=== PATIENT | female | born 1970 | race Caucasian/White ===

== ENCOUNTER 2016-08-31 14:37 | Emergency (ER) | payer OTHER ==
[~2016-08-31] VITALS: Ht 154.9 cm; Wt 139.5 kg
[~2016-08-31 14:37] MED LIST: ALBU8.5H3 INH; BECL8.7A INH; CETI10TA34 PO; CITROMA PO; GLIP2.5T14 PO; GUAI120S26 PO; PRED50TA PO; RTPRO NEB; SERT20OR2 PO
[2016-08-31 15:00] VITALS: Ht 154.9 cm; Wt 139.5 kg
[2016-08-31] MEDS ORDERED: KETOROLAC 30 MG INJ IV STA (16:24)
[2016-08-31] MEDS ORDERED: BREX3TAB PO (16:40)
[2016-08-31] MEDS ORDERED: TOPI-44 PO (16:42)
[2016-08-31] MEDS ORDERED: SERT50TA PO (16:42)
[2016-08-31] MEDS ORDERED: ALBU18HF INHALATION (16:43)
[2016-08-31] MEDS ORDERED: GLU5XL PO (16:43)
[2016-08-31] MEDS ORDERED: KETOROLAC 30 MG INJ ONE (16:47)
[2016-08-31 17:26] LABS: BASOPHILS % 0.3 % (0.0-2.0); EOSINOPHILS # 0.1 10^3/ul (0.0-0.5); EOSINOPHILS % 0.7 % (0.0-7.0); HEMATOCRIT 38.9 % (37.0-47.0); HEMOGLOBIN 12.7 g/dl (12.0-16.0); LYMPHOCYTES # 4.1 10^3/ul (0.8-2.9); MEAN CORPUSCULAR HEMOGLOBIN 27.1 pg (29.0-33.0); MEAN CORPUSCULAR HGB CONC 32.6 g/dl (32.0-37.0); MEAN CORPUSCULAR VOLUME 83.1 fl (82.0-101.0); MEAN PLATELET VOLUME 7.5 fl (7.4-10.4); MONOCYTE # 1.5 10^3/ul (0.3-0.9); MONOCYTES % 8.8 % (0.0-11.0); NEUTROPHIL # 11.2 10^3/ul (1.6-7.5); NEUTROPHILS % 66.2 % (39.0-77.0); PLATELET COUNT 334 10^3/UL (140-440); RED BLOOD COUNT 4.68 10^6/ul (4.20-5.40); RED CELL DISTRIBUTION WIDTH 15.6 % (11.5-14.5); UNCORRECTED WBC 16.9 10^3/ul (4.8-10.8); WHITE BLOOD COUNT 16.9 10^3/ul (4.8-10.8)
[2016-08-31 17:35] LABS: INR 0.91; PROTIME 12.2 Sec (12.2-14.2)
[2016-08-31 17:37] LABS: CONDITION 1; LH ANALYZER COMMENTS 1
[2016-08-31 17:38] LABS: D-DIMER 389.66 ng/ml (<460)
[2016-08-31 17:40] LABS: CHLORIDE 106 mmol/L (97-110); POTASSIUM 4.1 mmol/L (3.5-5.1); SODIUM 140 mmol/L (135-144)
[2016-08-31 17:42] LABS: ALBUMIN/GLOBULIN RATIO 1.14; ANION GAP 14 (8-16); ASPARTATE AMINO TRANSFERASE 20 IU/L (15-46); BILIRUBIN,INDIRECT 0.1 mg/dl (0-1.1); BILIRUBIN,TOTAL 0.1 mg/dl (0.2-1.3); BLOOD UREA NITROGEN 12 mg/dl (7-20); CARBON DIOXIDE 24 mmol/L (21-31); CREATININE 0.61 mg/dl (0.44-1.00); TOTAL PROTEIN 7.5 g/dl (6.1-8.1)
[2016-08-31 17:43] LABS: ALANINE AMINOTRANSFERASE 33 IU/L (13-69); ALKALINE PHOSPHATASE 80 IU/L (42-121); CALCIUM 9.4 mg/dl (8.4-10.2); GLUCOSE 120 mg/dl (70-220)
--- NOTE | 2016-08-31 17:58 | ERD ---
ER Documentation Chief Complaint Date/Time DATE: 08/31/16 TIME: 17:53 Chief Complaint CHEST PAIN STARTING LAST NIGHT HPI Patient presents with sharp chest pain that has been present since yesterday. It radiates through to her back. She states it has been constant since yesterday. She has been coughing. Occasional mucus which is clear. The chest pain has been gradual in onset. She denies any fever, chest congestion, sore throat, otalgia, rhinorrhea, chest trauma, nausea, vomiting, diarrhea, lower extremity edema, calf pain, traveling long distances, or pain like this prior. She states it does hurt when she presses on her chest wall. She did not try anything [id number]-dct-[id number] for this pain. She denies any abnormal rashes, bleeding, or bruises. She wonders if her bipolar medication is causing the chest pain. ROS All systems reviewed and are negative except as per history of present illness. Medications Home Meds Reported Medications Albuterol Sulfate* (Ventolin HFA*) 18 Gm Hfa.aer.ad, 2 PUFF INHALATION Q6H, #1 INHALER 08/31/16 Glipizide XL* (Glipizide XL*) 5 Mg Tabsr, 5 MG PO AC BREAKFAST, TAB 08/31/16 Sertraline Hcl* (Zoloft*) 50 Mg Tablet, 50 MG PO DAILY, #30 TAB 08/31/16 Topiramate* (Topiramate*) 25 Mg Tablet, 25 MG PO BID, TAB 08/31/16 Brexpiprazole (Rexulti) 3 Mg Tablet, 3 MG PO QHS, TAB 08/31/16 Discontinued Reported Medications Glipizide XL* (Glipizide XL*) Unknown Strength Tab.er.24, PO DAILY, TAB 01/01/16 Sertraline Hcl* (Sertraline Hcl*) Unknown Strength Oral.conc, PO DAILY, ML 01/01/16 Albuterol Sulfate* (Proair HFA*) Unknown Strength Hfa.aer.ad, INH Q4H Y for WHEEZING AND SOB, #1 INHALER 01/01/16 Discontinued Scripts Magnesium Citrate* (Citroma*) 300 Ml Soln, 300 ML PO ONCE, #1 BOTTLE Prov:LIANA PUGH. [employer] LEARNING [employer]ER 07/17/16 Cetirizine Hcl* (Cetirizine Hcl*) 10 Mg Tab.chew, 10 MG PO DAILY, #30 TAB Prov:NESSA GREENBERG NP 01/01/16 Prednisone* (Prednisone*) 50 Mg Tablet, 50 MG PO DAILY for 5 Days, TAB Prov:NESSA GREENBERG NP 01/01/16 Hpfapdjpahj-K-Utuqvjzzgy Hb* (Guaifenesin* DM Syrup) 120 Ml Syrup, 10 ML PO Q4H Y for COUGH, #120 ML Prov:NESSA GREENBERG NP 01/01/16 Beclomethasone Dip* (Qvar 40*) 7.3 Gm Inha, 2 PUFF INH BID, #1 INHALER Prov:NESSA GREENBERG NP 01/01/16 Albuterol Sulfate* (Proventil* Neb) 0.083% Neb, 2.5 MG NEB Q4 Y for SHORTNESS OF BREATH, #30 EA Prov:NESSA GREENBERG NP 01/01/16 Allergies Allergies: Coded Allergies: amitriptyline (Unverified Allergy, Unknown, 08/31/16) morphine (Unverified Allergy, Unknown, 08/31/16) PMhx/Soc History of Surgery: No Anesthesia Reaction: No Hx Neurological Disorder: No Hx Respiratory Disorders: No Hx Cardiac Disorders: No Hx Psychiatric Problems: Yes (bipolar disorder) Hx Miscellaneous Medical Probl: Yes (asthma, DM) Hx Alcohol Use: No Hx Substance Use: No Hx Tobacco Use: No Smoking Status: Never smoker FmHx Family History: diabetes Physical Exam Vitals Vital Signs Date Time Temp Pulse Resp B/P Pulse Ox O2 Delivery O2 Flow Rate FiO2 08/31/16 16:30 98.7 85 18 130/65 100 Room Air 08/31/16 16:30 Nasal Cannula 2 08/31/16 15:00 98.9 94 22 113/60 95 Physical Exam Const: Well-developed obese female lying on the bed in no acute distress Head: Atraumatic Eyes: Normal Conjunctiva ENT: Normal External Ears, Nose and Mouth. Neck: Full range of motion..~ No meningismus. Resp: Clear to auscultation bilaterally Cardio: Regular rate and rhythm, no murmurs, tenderness to palpation of left anterior chest wall which exactly reproduces her chest pain Abd: Soft, non tender, non distended. Normal bowel sounds Skin: No petechiae or rashes Back: No midline or flank tenderness Ext: No cyanosis, or edema, no tenderness to palpation of the calf, negative Homans sign. Neur: Awake and alert Psych: Normal Mood and Affect Result Diagram: 08/31/16 1700 08/31/16 1700 Results 24 hrs Laboratory Tests Test 08/31/16 17:00 Activated Partial Thromboplast Time 31.0Sec Alanine Aminotransferase (ALT/SGPT) 33IU/L Albumin 4.0g/dl Albumin/Globulin Ratio 1.14 Alkaline Phosphatase 80IU/L Anion Gap 14 Aspartate Amino Transf (AST/SGOT) 20IU/L Basophils # 0.010^3/ul Basophils % 0.3% Blood Morphology Comment Blood Urea Nitrogen 12mg/dl Calcium Level 9.4mg/dl Carbon Dioxide Level 24mmol/L Chloride Level 106mmol/L Creatinine 0.61mg/dl D-Dimer 389.66ng/ml D-Dimer Comment Direct Bilirubin 0.00mg/dl Eosinophils # 0.110^3/ul Eosinophils % 0.7% Globulin 3.50g/dl Glucose Level 120mg/dl Hematocrit 38.9% Hemoglobin 12.7g/dl INR International Normalized Ratio 0.91 Indirect Bilirubin 0.1mg/dl Lymphocytes # 4.110^3/ul Lymphocytes % 24.0% Mean Corpuscular Hemoglobin 27.1pg Mean Corpuscular Hemoglobin Concent 32.6g/dl Mean Corpuscular Volume 83.1fl Mean Platelet Volume 7.5fl Monocytes # 1.510^3/ul Monocytes % 8.8% Neutrophils # 11.210^3/ul Neutrophils % 66.2% Nucleated Red Blood Cells # 0.010^3/ul Nucleated Red Blood Cells % 0.0/100WBC Platelet Count 57528^3/UL Potassium Level 4.1mmol/L Prothrombin Time 12.2Sec Prothrombin Time Ratio 1.0 Red Blood Count 4.6810^6/ul Red Cell Distribution Width 15.6% Sodium Level 140mmol/L Total Bilirubin 0.1mg/dl Total Protein 7.5g/dl Troponin I Pending White Blood Count 16.910^3/ul Current Medications Medications (Trade) Dose Ordered Sig/Balta Route PRN Reason Start Time Stop Time Status Last Admin Dose Admin Ketorolac Tromethamine (Toradol) 30 mg ONCE STAT IV 08/31/16 16:24 08/31/16 16:25 DC 08/31/16 16:48 Procedures/MDM Chest x-ray does not demonstrate any acute cardiac pulmonary process EKG shows a normal sinus rhythm at approximately 95 bpm. No evidence for acute ischemia noted. No old EKG available for comparison. Patient's pain is much improved after the Toradol. She is stable for discharge. Departure Diagnosis: Primary Impression: Chest pain Chest pain type: precordial chest pain Qualified Code: R07.2 - Precordial pain Condition: Stable Patient Instructions: Chest Pain, Uncertain Cause Additional Instructions: Take medications as prescribed. Please schedule follow-up appointment with your primary care physician. Discussed her bipolar medication with your doctor if you are concerned about taking it. Return to the emergency department for any new or worsening symptoms. PREM MCGUIRE Aug 31, 2016 17:57
[2016-08-31] MEDS ORDERED: ULT50 PO (17:59)
[2016-08-31] MEDS ORDERED: ETOD300C26 PO (18:00)
[2016-08-31 18:01] LABS: TROPONIN-I < 0.012 ng/ml (0.00-0.12)
--- NOTE | 2016-08-31 18:12 | RADRPT ---
PROCEDURE: XR Chest. CLINICAL INDICATION: Chest pain TECHNIQUE: Chest AP portable. COMPARISON: 01/01/2016 FINDINGS: The mediastinal structures are unremarkable. The heart is normal in size and configuration. The pu lmonary vascularity is normal. The lung mariscal are unremarkable. No consolidation is identified. The pleural spaces are unremarkable. The axial skeleton is unremarkable. IMPRESSION: No active intrathoracic disease. RPTAT: [facility] .Florentino Gardiner MD, MD Date Time Electronically viewed and signed by .Florentino Gardiner MD, on 08/31/2016 17:57 .B/
[2016-08-31 18:17] VITALS: BP 158/98; PULSE 91; RESP 18; TEMP 98.9
== END 2016-08-31 18:19 | disposition home or self-care (01) ==
LOC: E/R 14:37
DX: R07.2 Precordial pain (principal); J45.909 Unspecified asthma, uncomplicated; E11.9 Type 2 diabetes mellitus without complications; Z79.84 Long term (current) use of oral hypoglycemic drugs
CPT/HCPCS: 36415; 71010; 80053; 84484; 85025; 85378; 85610; 85730; 93005; 96374; J1885; Z7502

== ENCOUNTER 2017-05-25 14:11 | Emergency (ER) | payer OTHER ==
[~2017-05-25] VITALS: Ht 154.9 cm; Wt 138.0 kg
[~2017-05-25 14:11] MED LIST changes: +ALBU18HF INHALATION; -ALBU8.5H3 INH; -BECL8.7A INH; +BREX3TAB PO; -CETI10TA34 PO; -CITROMA PO; +ETOD300C29 PO; +GLIP-160 PO; -GLIP2.5T14 PO; -GUAI120S26 PO; -PRED50TA PO; -RTPRO NEB; -SERT20OR2 PO; +SERT50TA PO; +TOPI-44 PO; +TRAM50TA2 PO
[2017-05-25 14:14] VITALS: Ht 154.9 cm; Wt 138.0 kg
[2017-05-25] MEDS ORDERED: SULF1TAB31 PO (16:07)
[2017-05-25] MEDS ORDERED: CEPH-443 PO (16:07)
--- NOTE | 2017-05-25 16:15 | ERD ---
ER Documentation Chief Complaint Date/Time DATE: 05/25/17 TIME: 16:10 Chief Complaint pt bib family with c/o right under arm abscess, since today HPI 47-year-old female presents with a small abscess under her right arm that started draining today. She denies any fevers, denies taking any medications for this. ROS All systems reviewed and are negative except as per history of present illness. Medications Home Meds Active Scripts Sulfamethoxazole/Trimethoprim* (Bactrim Ds* Tablet) 1 Each Tablet, 1 TAB PO BID , #14 TAB Prov:ROSANNE BINGHAM PA-C 05/25/17 Cephalexin* (Keflex*) 500 Mg Capsule, 500 MG PO QID for 7 Days, CAP Prov:ROSANNE BINGHAM PA-C 05/25/17 Etodolac (Lodine) 300 Mg Capsule, 300 MG PO Q8 Y for PAIN for 10 Days, #30 CAP 0 Refills Prov:PREM MCGUIRE 08/31/16 Tramadol HCl (Tramadol HCl) 50 Mg Tablet, 100 MG PO Q6 Y for PAIN, #20 TAB 0 Refills Prov:PREM MCGUIRE 08/31/16 Reported Medications Albuterol Sulfate* (Ventolin HFA*) 18 Gm Hfa.aer.ad, 2 PUFF INHALATION Q6H, #1 INHALER 08/31/16 Glipizide XL* (Glipizide XL*) 5 Mg Tabsr, 5 MG PO AC BREAKFAST, TAB 08/31/16 Sertraline Hcl* (Zoloft*) 50 Mg Tablet, 50 MG PO DAILY, #30 TAB 08/31/16 Topiramate* (Topiramate*) 25 Mg Tablet, 25 MG PO BID, TAB 08/31/16 Brexpiprazole (Rexulti) 3 Mg Tablet, 3 MG PO QHS, TAB 08/31/16 Allergies Allergies: Coded Allergies: amitriptyline (Unverified Allergy, Unknown, 08/31/16) morphine (Unverified Allergy, Unknown, 08/31/16) PMhx/Soc History of Surgery: No Anesthesia Reaction: No Hx Neurological Disorder: No Hx Respiratory Disorders: No Hx Cardiac Disorders: No Hx Psychiatric Problems: Yes (bipolar disorder) Hx Miscellaneous Medical Probl: Yes (asthma, DM) Hx Alcohol Use: No Hx Substance Use: No Hx Tobacco Use: No Physical Exam Vitals Vital Signs Date Time Temp Pulse Resp B/P Pulse Ox O2 Delivery O2 Flow Rate FiO2 05/25/17 14:14 97.3 85 16 134/61 98 Physical Exam Const: [] Head: Atraumatic Eyes: Normal Conjunctiva ENT: Normal External Ears, Nose and Mouth. Neck: Full range of motion..~ No meningismus. Resp: Clear to auscultation bilaterally Cardio: Regular rate and rhythm, no murmurs Abd: Soft, non tender, non distended. Normal bowel sounds Skin: No petechiae or rashes Back: No midline or flank tenderness Ext: Small abscess indurated in the right up under r arm Neur: Awake and alert Psych: Normal Mood and Affect Procedures/MDM This is a 47-year-old female presenting to the emergency department with a small abscess that was previously drained under the arm. It abscess is small and indurated enough to treat with antibiotics only. No evidence of cellulitis , lymphangitis. Prescription for Keflex and Bactrim was provided. Stable to be discharged home Departure Diagnosis: Primary Impression: Abscess Condition: Stable Patient Instructions: Abscess, Antiobiotic Treatment Only Referrals: [facility] Additional Instructions: FOLLOW UP WITH YOUR PRIMARY CARE PHYSICIAN TOMORROW.Return to this facility if you are not improving as expected. ROSANNE BINGHAM PA-C May 25, 2017 16:15
== END 2017-05-25 16:14 | disposition home or self-care (01) ==
LOC: FTE 14:11
DX: L02.413 Cutaneous abscess of right upper limb (principal); J45.909 Unspecified asthma, uncomplicated; E11.9 Type 2 diabetes mellitus without complications; Z79.84 Long term (current) use of oral hypoglycemic drugs
CPT/HCPCS: 99284

== ENCOUNTER 2018-03-29 07:56 | Day surgery (SDC) | END 2018-03-29 10:32 | disposition home or self-care (01) ==

== ENCOUNTER 2018-08-01 21:25 | Emergency (ER) | END 2018-08-01 23:03 | disposition home or self-care (01) ==

== ENCOUNTER → 2018-12-23 | Outpatient (CLI) | payer OTHER ==
[~2018-12-23] MED LIST changes: +BUSPIRONE; +CEPH-443 PO; -ETOD300C29 PO; +IBUP800T48 PO; +JANUVIA; +SULF1TAB31 PO; -TOPI-44 PO; +TOPI25TA10 PO; +[UNRECOGNIZED DRUG - CODE] PO
--- NOTE | 2018-12-29 23:25 | SP ---
DATE OF PROCEDURE: 12/23/2018 INDICATION: A 48-year-old lady with history of seizures, last episode was 4 days prior to EEG. Curr ently on Topamax, Zoloft and Victoza. DESCRIPTION OF PROCEDURE: Routine EEG was recorded digitally. Pstod-xx-wllbe and iivuo-rv-dxh florencia ges were recorded and reviewed. All impedances were measured and recorded. Cap electrodes were plac ed in accordance to International 10-20 system of electrode placement. FINDINGS: Symmetrically distributed background activity of low amplitude ranging in frequency betwee n 8 to 10 cycles per second was seen in the awake state. Photic stimulation produces no definite dri ving. Hyperventilation elicits no epileptiform activity. When she gets drowsy and falls asleep, minal kground rhythm gets slightly less organized and slows down 4 to 6 cycles per second. No definite epi leptiform activity was seen. No signs of ongoing electrographic seizures or lateralized slowing. IMPRESSION: Normal study. Please correlate clinically. Dictated By: JEANETTE OSEGUERA/KEON Conf#: [id number] DID#: [id number]
== END | disposition home or self-care (01) ==
LOC: EEG 08:25
PROVIDERS: ATTEND Family Medicine Adult Medicine
DX: G40.409 Other generalized epilepsy and epileptic syndromes, not intractable, without status epilepticus (principal)
CPT/HCPCS: 95819

== ENCOUNTER 2019-07-07 14:53 | Emergency (ER) | payer OTHER ==
[~2019-07-07] VITALS: Ht 154.9 cm; Wt 125.3 kg
[~2019-07-07 14:53] MED LIST changes: -BREX3TAB PO; +BUSP10TA2 PO; -BUSPIRONE; +CARI1.5C PO; -CEPH-443 PO; +DOXY-214 PO; -IBUP800T48 PO; +LIDO1ADH TP; +MONT10TA24 PO; +PRED20TA PO; -SULF1TAB31 PO; -TRAM50TA2 PO; +[UNRECOGNIZED DRUG - OTHER]; +[UNRECOGNIZED DRUG - OTHER]; +buspar; +victoza; +zoloft
[2019-07-07 14:55] VITALS: BP 103/52; PULSE 100; RESP 26; Ht 154.9 cm; Wt 125.3 kg
[2019-07-07] MEDS ORDERED: IPRATROPIUM (NEB) 0.5 MG/2.5 ML AMP NEB STA (15:35)
[2019-07-07] MEDS ORDERED: ALBUTEROL 0.083% (NEB) 2.5 MG/3 ML AMP NEB STA (15:35)
[2019-07-07] MEDS ORDERED: HYDROCODONE/APAP (5/325) TAB PO ONE (16:00)
[2019-07-07] MEDS ORDERED: ONDANSETRON (ODT) 4 MG TAB ODT STA ×2 (16:45)
== END 2019-07-07 17:40 | disposition home or self-care (01) ==
LOC: FTE 14:53
DX: J45.31 Mild persistent asthma with (acute) exacerbation (principal); Z79.84 Long term (current) use of oral hypoglycemic drugs
CPT/HCPCS: 71045; 71100; 94664; Z7502; Z7610; 93005